=== PATIENT | male | born 1965 | race Caucasian/White ===

== ENCOUNTER → 2019-03-31 | Outpatient (CLI) | payer OTHER ==
[~2019-03-31] MED LIST: ADULT LOW DOSE81 MG PO; ALDACTONE25 MG PO; AZITHROMYCIN 2250 MG PO; BYSTOLIC 5 MG5 M1 PO; Bystolic PO; CLONIDINE HCL0.3 M3 PO; CYMBALTA60 MG PO; EDARBI80 MG PO; HYDROCHLOROTHIA25 M2 PO; IBUPROFEN 800800 MG PO; LEVAQUIN 500 M500 M2 PO; LISINOPRIL10 MG PO; MINOXIDIL2.5 MG PO; TRIBENZOR 40-11 EAC1 PO; TRIBENZOR 40-51 EAC1 PO; TRIBENZOR PO; XANAX 0.5 MG0.5 MG PO
== END ==
LOC: CAT 11:28
DX: G31.9 Degenerative disease of nervous system, unspecified (principal); R90.82 White matter disease, unspecified; Z88.8 Allergy status to other drugs, medicaments and biological substances

== ENCOUNTER → 2019-04-02 | Outpatient (CLI) | payer OTHER | LOC: CAT 09:02 | DX: I63.9 Cerebral infarction, unspecified (principal); R90.82 White matter disease, unspecified; Z88.8 Allergy status to other drugs, medicaments and biological substances; Z88.0 Allergy status to penicillin ==